=== PATIENT | male | born 1965 | race African-American/Black ===

== ENCOUNTER 2025-10-02 04:59 | Inpatient (IN) | payer MEDICARE, MEDICAID ==
[~2025-10-02] VITALS: Ht 177.8 cm; Wt 100.5 kg
[~2025-10-02 04:59] MED LIST: LURA60TA PO; METO25 PO
[2025-10-02 05:31] LABS: PLATELET COUNT (AUTO) 239 K/uL (150-450); RED BLOOD CELL COUNT(AUTO) 4.99 MIL/uL (4.50-5.90); RED CELL DISTRIBUTION WIDTH 16.2 % (11.5-14.5); WHITE BLOOD COUNT (AUTO) 10.4 K/uL (4.5-11.0)
[2025-10-02 05:42] LABS: RBC MORPHOLOGY COMMENT ABNORMAL RBC MORPH
[2025-10-02 05:45] LABS: CALCIUM, TOTAL 9.2 mg/dL (8.8-10.5); CREATININE 0.74 mg/dL (0.60-1.30); GLOMERULAR FILTR. RATE CALC > 60 mL/min (>60); GLUCOSE,RANDOM 165 mg/dL (70-110); SODIUM SERUM 137 mmol/L (136-145); UREA NITROGEN, BLOOD 13 mg/dL (7-18)
[2025-10-02 06:05] LABS: COVID AG,FIA SOURCE NASAL SWAB
[2025-10-02 06:29] LABS: SARS-COV2 (COVID) ANTIGEN,FIA Negative (Negative)
[2025-10-02 06:30] LABS: APPEARANCE,URINE CLEAR (CLEAR); GLUCOSE, URINE (UA) NEGATIVE (NEGATIVE); LEUKOCYTE ESTERASE ,URINE NEGATIVE (NEGATIVE); NITRATE,URINE NEGATIVE (NEGATIVE); OCCULT BLOOD,URINE NEGATIVE (NEGATIVE); PH,URINE DRUG SCREEN 6.5 (5.0-8.0); SPECIFIC GRAVITIY, URINE 1.011 (1.003-1.030)
[2025-10-02 06:44] LABS: ALCOHOL, URINE DRUG SCREEN NEGATIVE (NEGATIVE); AMPHET/METH SCREEN,URINE NEGATIVE (NEGATIVE); BARBITURATE SCREEN, URINE NEGATIVE (NEGATIVE); CANNABINOID SCREEN,URINE NEGATIVE (NEGATIVE); COCAINE SCREEN,URINE NEGATIVE (NEGATIVE); METHADONE SCREEN, URINE NEGATIVE (NEGATIVE)
[2025-10-02 10:40] VITALS: O2SAT 100
[2025-10-02] MEDS ORDERED: ALBUTEROL SULFATE HFA 90 MCG/PUFF 8 GM INHALER IH PRN (12:00)
[2025-10-02] MEDS ORDERED: BACITRACIN 28 GM OINTMENT TP PRN (12:00)
[2025-10-02] MEDS ORDERED: DOCUSATE SODIUM 100 MG CAPSULE PO PRN (12:00)
[2025-10-02] MEDS ORDERED: ONDANSETRON 4 MG TABLET PO PRN (12:00)
[2025-10-02] MEDS ORDERED: BENZOCAINE/MENTHOL [CEPACOL] LOZENGE PO PRN (12:00)
[2025-10-02] MEDS ORDERED: DEXTROSE 50%-WATER 25 GM/50 ML SYRINGE IVP PRN (12:00)
[2025-10-02] MEDS ORDERED: LOPERAMIDE HCL 2 MG CAPSULE PO PRN (12:00)
[2025-10-02] MEDS ORDERED: OMEPRAZOLE 20 MG CAPSULE PO PRN (12:00)
[2025-10-02] MEDS ORDERED: MAGNESIUM HYDROXIDE SUSPENSION 30 ML UDCUP PO PRN (12:00)
[2025-10-02] MEDS ORDERED: PETROLATUM,WHITE 28 GM JELLY TP PRN (12:00)
[2025-10-02] MEDS: METOPROLOL TARTRATE 25 MG TABLET PO SCH (12:22)
[2025-10-02 14:50] VITALS: BP 166/95; PULSE 97; RESP 17; TEMP 98.1; O2SAT 100
[2025-10-02] MEDS: LURASIDONE HCL 80 MG TABLET PO SCH (17:19)
[2025-10-02] MEDS: INSULIN LISPRO 100 UNITS/ML SQ PRN (21:32)
[2025-10-02 21:50] LABS: GLUCOMETER DEV NAME(LOC) 3E.C; GLUCOSE,POINT OF CARE 179 MG/DL (70-110)
[2025-10-02 22:30] VITALS: BP 134/65; PULSE 93; RESP 16; TEMP 97.7; O2SAT 100
[2025-10-03 07:16] LABS: GLUCOMETER DEV NAME(LOC) 3E.C; GLUCOSE,POINT OF CARE 145 MG/DL (70-110)
[2025-10-03 10:14] VITALS: BP 160/65; PULSE 93; RESP 18; TEMP 97.7; O2SAT 100
[2025-10-03 11:55] LABS: GLUCOMETER DEV NAME(LOC) 3E.C; GLUCOSE,POINT OF CARE 176 MG/DL (70-110)
[2025-10-03 17:35] LABS: GLUCOMETER DEV NAME(LOC) 3E.C; GLUCOSE,POINT OF CARE 204 MG/DL (70-110)
[2025-10-03 19:46] LABS: GLUCOMETER DEV NAME(LOC) 3E.C; GLUCOSE,POINT OF CARE 166 MG/DL (70-110)
[2025-10-03 20:34] VITALS: BP 156/72; PULSE 94; RESP 18; TEMP 97.8; O2SAT 99
[2025-10-03] MEDS: ZOLPIDEM TARTRATE 10 MG TABLET PO PRN (22:44)
[2025-10-04 06:30] LABS: GLUCOMETER DEV NAME(LOC) 3E.C; GLUCOSE,POINT OF CARE 129 MG/DL (70-110)
[2025-10-04 09:49] VITALS: BP 153/75; PULSE 98; RESP 16; TEMP 96.8; O2SAT 99
[2025-10-04 11:41] LABS: GLUCOMETER DEV NAME(LOC) 3E.C; GLUCOSE,POINT OF CARE 164 MG/DL (70-110)
[2025-10-04 17:26] LABS: GLUCOMETER DEV NAME(LOC) 3E.C; GLUCOSE,POINT OF CARE 155 MG/DL (70-110)
[2025-10-04 20:16] LABS: GLUCOMETER DEV NAME(LOC) 3E.C; GLUCOSE,POINT OF CARE 202 MG/DL (70-110)
[2025-10-04 20:35] VITALS: BP 142/85; PULSE 89; RESP 19; TEMP 97.6; O2SAT 98
[2025-10-04] MEDS: IBUPROFEN 600 MG TABLET PO PRN (20:39)
[2025-10-04 21:13] VITALS: BP 159/93; PULSE 89; RESP 17; TEMP 98.1; O2SAT 98
[2025-10-04 21:39] VITALS: RESP 18
[2025-10-05] MEDS: MAG HYDROX/ALUMINUM HYD/SIMETH ES 30 ML SUSPENSION UDCUP PO PRN (03:19)
[2025-10-05 07:20] LABS: GLUCOMETER DEV NAME(LOC) 3E.C; GLUCOSE,POINT OF CARE 154 MG/DL (70-110)
[2025-10-05 08:47] VITALS: BP 177/80; PULSE 101; RESP 18; TEMP 97.7
[2025-10-05 11:30] LABS: GLUCOMETER DEV NAME(LOC) 3E.C; GLUCOSE,POINT OF CARE 176 MG/DL (70-110)
[2025-10-05 16:46] LABS: GLUCOMETER DEV NAME(LOC) 3E.C; GLUCOSE,POINT OF CARE 124 MG/DL (70-110)
[2025-10-05 18:26] LABS: CHOL/HDL RATIO 3.6 (4.2-7.3); LDL CHOL (CALC.) 79.0 mg/dL (0-130)
[2025-10-05 20:00] VITALS: BP 143/60; PULSE 84; RESP 18; TEMP 97.5; O2SAT 99
[2025-10-05 21:30] LABS: GLUCOMETER DEV NAME(LOC) 3E.C; GLUCOSE,POINT OF CARE 243 MG/DL (70-110)
[2025-10-06 06:50] LABS: GLUCOMETER DEV NAME(LOC) 3E.C; GLUCOSE,POINT OF CARE 126 MG/DL (70-110)
[2025-10-06 09:19] VITALS: BP 168/94; PULSE 85; RESP 18; TEMP 98.2; O2SAT 99
[2025-10-06 11:50] LABS: GLUCOMETER DEV NAME(LOC) 3E.C; GLUCOSE,POINT OF CARE 172 MG/DL (70-110)
[2025-10-06 17:26] LABS: GLUCOMETER DEV NAME(LOC) 3E.C; GLUCOSE,POINT OF CARE 182 MG/DL (70-110)
[2025-10-06 20:50] LABS: GLUCOMETER DEV NAME(LOC) 3E.C; GLUCOSE,POINT OF CARE 233 MG/DL (70-110)
[2025-10-06 22:15] VITALS: BP 164/66; PULSE 86; RESP 18; TEMP 97.9; O2SAT 99
[2025-10-06] MEDS: TETRAHYDROZOLINE HCL 0.05% 15 ML OPHTHALMIC SOLUTION OU PRN (22:35)
[2025-10-07 06:11] LABS: GLUCOMETER DEV NAME(LOC) 3E.C; GLUCOSE,POINT OF CARE 104 MG/DL (70-110)
[2025-10-07 08:40] VITALS: BP 177/92; PULSE 86; RESP 20; TEMP 98; O2SAT 100
[2025-10-07 11:10] LABS: GLUCOMETER DEV NAME(LOC) 3E.C; GLUCOSE,POINT OF CARE 149 MG/DL (70-110)
[2025-10-07 17:01] LABS: GLUCOMETER DEV NAME(LOC) 3E.C; GLUCOSE,POINT OF CARE 213 MG/DL (70-110)
[2025-10-07 17:10] VITALS: BP 181/75; PULSE 89; RESP 20; TEMP 98.3; O2SAT 99
[2025-10-07 19:03] VITALS: BP 134/54
[2025-10-07 20:06] VITALS: BP 149/66; PULSE 72; RESP 20; TEMP 98; O2SAT 98
[2025-10-07 21:45] LABS: GLUCOMETER DEV NAME(LOC) 3E.C; GLUCOSE,POINT OF CARE 102 MG/DL (70-110)
[2025-10-08 06:20] LABS: GLUCOMETER DEV NAME(LOC) 3E.C; GLUCOSE,POINT OF CARE 153 MG/DL (70-110)
[2025-10-08 09:00] VITALS: BP 180/80; PULSE 94; RESP 16; TEMP 97.3; O2SAT 100
[2025-10-08 11:00] VITALS: BP 164/72; PULSE 80; RESP 18; TEMP 97.1; O2SAT 99
[2025-10-08 11:31] LABS: GLUCOMETER DEV NAME(LOC) 3E.C; GLUCOSE,POINT OF CARE 149 MG/DL (70-110)
[2025-10-08 17:26] LABS: GLUCOMETER DEV NAME(LOC) 3E.C; GLUCOSE,POINT OF CARE 152 MG/DL (70-110)
[2025-10-08 20:00] VITALS: BP 159/85; PULSE 82; RESP 18; TEMP 98.5; O2SAT 99
[2025-10-08 21:25] LABS: GLUCOMETER DEV NAME(LOC) 3E.C; GLUCOSE,POINT OF CARE 177 MG/DL (70-110)
[2025-10-09 06:45] LABS: GLUCOMETER DEV NAME(LOC) 3E.C; GLUCOSE,POINT OF CARE 185 MG/DL (70-110)
[2025-10-09 09:06] VITALS: BP 156/69; PULSE 70; RESP 16; TEMP 96.9; O2SAT 100
[2025-10-09 11:55] LABS: GLUCOMETER DEV NAME(LOC) 3E.C; GLUCOSE,POINT OF CARE 145 MG/DL (70-110)
[2025-10-09 17:00] LABS: GLUCOMETER DEV NAME(LOC) 3E.C; GLUCOSE,POINT OF CARE 200 MG/DL (70-110)
[2025-10-09 21:20] LABS: GLUCOMETER DEV NAME(LOC) 3E.C; GLUCOSE,POINT OF CARE 101 MG/DL (70-110)
[2025-10-09 22:40] VITALS: BP 149/81; PULSE 82; RESP 19; TEMP 97.2; O2SAT 98
[2025-10-10 06:40] LABS: GLUCOMETER DEV NAME(LOC) 3E.C; GLUCOSE,POINT OF CARE 134 MG/DL (70-110)
[2025-10-10 11:00] VITALS: BP 167/94; PULSE 88; RESP 17; TEMP 97.8; O2SAT 100
[2025-10-10] MEDS: ACETAMINOPHEN 325 MG TABLET PO PRN (11:00)
[2025-10-10 12:01] LABS: GLUCOMETER DEV NAME(LOC) 3E.C; GLUCOSE,POINT OF CARE 122 MG/DL (70-110)
[2025-10-10 17:35] LABS: GLUCOMETER DEV NAME(LOC) 3E.C; GLUCOSE,POINT OF CARE 159 MG/DL (70-110)
[2025-10-10 21:01] LABS: GLUCOMETER DEV NAME(LOC) 3E.C; GLUCOSE,POINT OF CARE 144 MG/DL (70-110)
[2025-10-10 22:39] VITALS: BP 144/89; PULSE 88; RESP 19; TEMP 98; O2SAT 98
[2025-10-11 06:55] LABS: GLUCOMETER DEV NAME(LOC) 3E.C; GLUCOSE,POINT OF CARE 111 MG/DL (70-110)
[2025-10-11 08:53] VITALS: BP 169/76; PULSE 82; RESP 16; TEMP 97.5; O2SAT 100
[2025-10-11 12:00] LABS: GLUCOMETER DEV NAME(LOC) 3E.C; GLUCOSE,POINT OF CARE 96 MG/DL (70-110)
[2025-10-11 16:35] LABS: GLUCOMETER DEV NAME(LOC) 3E.C; GLUCOSE,POINT OF CARE 151 MG/DL (70-110)
[2025-10-11 17:39] VITALS: BP 170/75; PULSE 77
[2025-10-11 20:16] LABS: GLUCOMETER DEV NAME(LOC) 3E.C; GLUCOSE,POINT OF CARE 124 MG/DL (70-110)
[2025-10-11 21:44] VITALS: BP 149/78; PULSE 81; RESP 18; TEMP 98; O2SAT 98
[2025-10-12 06:15] LABS: GLUCOMETER DEV NAME(LOC) 3E.C; GLUCOSE,POINT OF CARE 148 MG/DL (70-110)
[2025-10-12 08:30] VITALS: BP 150/82; PULSE 85; RESP 17; TEMP 97.6; O2SAT 100
[2025-10-12 11:40] LABS: GLUCOMETER DEV NAME(LOC) 3E.C; GLUCOSE,POINT OF CARE 166 MG/DL (70-110)
[2025-10-12 16:20] LABS: GLUCOMETER DEV NAME(LOC) 3E.C; GLUCOSE,POINT OF CARE 135 MG/DL (70-110)
[2025-10-12 16:27] VITALS: BP 152/75; PULSE 89; RESP 18; O2SAT 99
[2025-10-12 21:19] VITALS: BP 155/71; PULSE 79; RESP 19; TEMP 98.3; O2SAT 97
[2025-10-12 22:05] LABS: GLUCOMETER DEV NAME(LOC) 3E.C; GLUCOSE,POINT OF CARE 136 MG/DL (70-110)
[2025-10-13 06:21] LABS: GLUCOMETER DEV NAME(LOC) 3E.C; GLUCOSE,POINT OF CARE 181 MG/DL (70-110)
[2025-10-13 10:00] VITALS: BP 164/68; PULSE 88; RESP 18; TEMP 97.6; O2SAT 18
[2025-10-13 12:10] LABS: GLUCOMETER DEV NAME(LOC) 3E.C; GLUCOSE,POINT OF CARE 105 MG/DL (70-110)
[2025-10-13 17:50] LABS: GLUCOMETER DEV NAME(LOC) 3E.C; GLUCOSE,POINT OF CARE 154 MG/DL (70-110)
[2025-10-13 20:43] VITALS: BP 136/79; PULSE 90; RESP 18; TEMP 98
[2025-10-13 20:51] VITALS: RESP 18
[2025-10-14 05:26] LABS: GLUCOMETER DEV NAME(LOC) 3E.C; GLUCOSE,POINT OF CARE 154 MG/DL (70-110)
[2025-10-14 08:00] VITALS: BP 156/78; PULSE 77; RESP 18; TEMP 98
[2025-10-14 12:06] LABS: GLUCOMETER DEV NAME(LOC) 3E.C; GLUCOSE,POINT OF CARE 133 MG/DL (70-110)
[2025-10-14 19:46] LABS: GLUCOMETER DEV NAME(LOC) 3E.C; GLUCOSE,POINT OF CARE 136 MG/DL (70-110)
[2025-10-14 20:06] VITALS: BP 166/84; PULSE 84; RESP 18; TEMP 97.6; O2SAT 100
[2025-10-14 20:56] LABS: GLUCOMETER DEV NAME(LOC) 3E.C; GLUCOSE,POINT OF CARE 155 MG/DL (70-110)
[2025-10-15 06:02] VITALS: BP 145/82; PULSE 85; RESP 18; TEMP 98; O2SAT 98
[2025-10-15 07:04] VITALS: RESP 18
[2025-10-15 08:10] LABS: GLUCOMETER DEV NAME(LOC) 3E.C; GLUCOSE,POINT OF CARE 105 MG/DL (70-110)
[2025-10-15 10:52] VITALS: BP 149/77; PULSE 86; RESP 16; TEMP 97.7; O2SAT 100
[2025-10-15 12:06] LABS: GLUCOMETER DEV NAME(LOC) 3E.C; GLUCOSE,POINT OF CARE 96 MG/DL (70-110)
[2025-10-15 17:25] LABS: GLUCOMETER DEV NAME(LOC) 3E.C; GLUCOSE,POINT OF CARE 105 MG/DL (70-110)
[2025-10-15 20:36] VITALS: BP 140/70; PULSE 78; RESP 18; TEMP 98; O2SAT 99
[2025-10-15 21:25] LABS: GLUCOMETER DEV NAME(LOC) 3E.C; GLUCOSE,POINT OF CARE 159 MG/DL (70-110)
[2025-10-16 06:06] LABS: GLUCOMETER DEV NAME(LOC) 3E.C; GLUCOSE,POINT OF CARE 114 MG/DL (70-110)
[2025-10-16 08:44] VITALS: BP 159/78; PULSE 84; RESP 16; TEMP 98; O2SAT 100
[2025-10-16 16:51] LABS: GLUCOMETER DEV NAME(LOC) 3E.C; GLUCOSE,POINT OF CARE 145 MG/DL (70-110)
[2025-10-16 21:04] VITALS: RESP 18
[2025-10-16 21:30] LABS: GLUCOMETER DEV NAME(LOC) 3E.C; GLUCOSE,POINT OF CARE 139 MG/DL (70-110)
[2025-10-17 07:05] LABS: GLUCOMETER DEV NAME(LOC) 3E.C; GLUCOSE,POINT OF CARE 103 MG/DL (70-110)
[2025-10-17 08:39] VITALS: BP 145/78; PULSE 87; RESP 18; TEMP 97.5; O2SAT 98
[2025-10-17 11:36] LABS: GLUCOMETER DEV NAME(LOC) 3E.C; GLUCOSE,POINT OF CARE 123 MG/DL (70-110)
[2025-10-17 14:51] VITALS: BP 141/85; PULSE 78; RESP 18; TEMP 97.5; O2SAT 98
[2025-10-17 16:21] LABS: GLUCOMETER DEV NAME(LOC) 3E.C; GLUCOSE,POINT OF CARE 168 MG/DL (70-110)
[2025-10-17 20:05] LABS: GLUCOMETER DEV NAME(LOC) 3E.C; GLUCOSE,POINT OF CARE 168 MG/DL (70-110)
[2025-10-17 20:27] VITALS: BP 142/82; PULSE 79; RESP 18; TEMP 97.7
[2025-10-18 05:26] LABS: GLUCOMETER DEV NAME(LOC) 3E.C; GLUCOSE,POINT OF CARE 132 MG/DL (70-110)
[2025-10-18 11:56] LABS: GLUCOMETER DEV NAME(LOC) 3E.C; GLUCOSE,POINT OF CARE 100 MG/DL (70-110)
[2025-10-18 13:11] VITALS: BP 149/69; PULSE 80; RESP 18; TEMP 98.2; O2SAT 97
[2025-10-18 16:21] LABS: GLUCOMETER DEV NAME(LOC) 3E.C; GLUCOSE,POINT OF CARE 202 MG/DL (70-110)
[2025-10-18 21:55] LABS: GLUCOMETER DEV NAME(LOC) 3E.C; GLUCOSE,POINT OF CARE 177 MG/DL (70-110)
[2025-10-19 01:36] VITALS: BP 159/69; PULSE 73; RESP 18; TEMP 98; O2SAT 98
[2025-10-19 08:00] VITALS: BP 154/81; PULSE 89; RESP 17; TEMP 97.7; O2SAT 100
[2025-10-19 17:25] LABS: GLUCOMETER DEV NAME(LOC) 3E.C; GLUCOSE,POINT OF CARE 169 MG/DL (70-110)
[2025-10-19 21:05] LABS: GLUCOMETER DEV NAME(LOC) 3E.C; GLUCOSE,POINT OF CARE 179 MG/DL (70-110)
[2025-10-19 22:07] VITALS: BP 137/61; PULSE 73; RESP 17; TEMP 97.8; O2SAT 97
[2025-10-20 06:51] LABS: GLUCOMETER DEV NAME(LOC) 3E.C; GLUCOSE,POINT OF CARE 123 MG/DL (70-110)
[2025-10-20 08:00] VITALS: BP 134/61; PULSE 79; RESP 16; TEMP 97.8; O2SAT 100
[2025-10-20 12:01] LABS: GLUCOMETER DEV NAME(LOC) 3E.C; GLUCOSE,POINT OF CARE 132 MG/DL (70-110)
[2025-10-20 16:31] LABS: GLUCOMETER DEV NAME(LOC) 3E.C; GLUCOSE,POINT OF CARE 132 MG/DL (70-110)
[2025-10-20 20:19] VITALS: BP 138/60; PULSE 73; RESP 17; TEMP 98; O2SAT 100
[2025-10-20 20:20] LABS: GLUCOMETER DEV NAME(LOC) 3E.C; GLUCOSE,POINT OF CARE 146 MG/DL (70-110)
[2025-10-21 05:40] LABS: GLUCOMETER DEV NAME(LOC) 3E.C; GLUCOSE,POINT OF CARE 146 MG/DL (70-110)
[2025-10-21 09:00] VITALS: BP 171/71; PULSE 82; RESP 16; TEMP 97.1; O2SAT 100
[2025-10-21 11:41] LABS: GLUCOMETER DEV NAME(LOC) 3E.C; GLUCOSE,POINT OF CARE 162 MG/DL (70-110)
[2025-10-21 16:46] VITALS: BP 149/74; RESP 18
[2025-10-21 17:01] LABS: GLUCOMETER DEV NAME(LOC) 3E.C; GLUCOSE,POINT OF CARE 103 MG/DL (70-110)
[2025-10-21 20:36] VITALS: BP 164/78; PULSE 74; RESP 18; TEMP 97.4; O2SAT 99
[2025-10-21 21:31] LABS: GLUCOMETER DEV NAME(LOC) 3E.C; GLUCOSE,POINT OF CARE 183 MG/DL (70-110)
[2025-10-22 07:00] LABS: GLUCOMETER DEV NAME(LOC) 3E.C; GLUCOSE,POINT OF CARE 117 MG/DL (70-110)
[2025-10-22 10:14] VITALS: BP 138/69; PULSE 83; RESP 18; TEMP 96.8; O2SAT 100
[2025-10-22 12:05] LABS: GLUCOMETER DEV NAME(LOC) 3E.C; GLUCOSE,POINT OF CARE 92 MG/DL (70-110)
[2025-10-22] MEDS ORDERED: LURA80TA2 PO ×2 (13:47→14:37)
[2025-10-22] MEDS ORDERED: LISI-662 PO (13:47)
[2025-10-22] MEDS ORDERED: LISI-894 PO (14:37)
[2025-10-22] MEDS ORDERED: METO25 PO (14:37)
[2025-10-29] MEDS ORDERED: RISP-32 PO ×2 (12:32→16:02)
[2025-10-29] MEDS ORDERED: METF-1211 PO ×2 (12:44→16:02)
[2025-10-29] MEDS ORDERED: METO25 PO (12:45)
[2025-10-29] MEDS ORDERED: LISI-894 PO (12:45)
== END 2025-10-22 17:11 | disposition home or self-care (01) | DRG 885 ==
LOC: EMS 05:01 → 3EC 11:15
PROVIDERS: ADMIT Psychiatry & Neurology Psychiatry; ATTEND Psychiatry & Neurology Psychiatry
PROC: GZHZZZZ Group Psychotherapy (ICD-10-PCS; principal; 2025-10-02)
PROC: GZ51ZZZ Individual Psychotherapy, Behavioral (ICD-10-PCS; 2025-10-02)
DX: F20.0 Paranoid schizophrenia (principal); E66.9 Obesity, unspecified; I10 Essential (primary) hypertension; Z20.822 Contact with and (suspected) exposure to COVID-19; F84.0 Autistic disorder; R73.9 Hyperglycemia, unspecified; G47.00 Insomnia, unspecified; Z68.31 Body mass index [BMI] 31.0-31.9, adult
CPT/HCPCS: 80048; 80061; 80307; 81003; 82962; 83036; 85025; 99285; G0480